=== PATIENT | male | born 1965 | race African-American/Black ===

== ENCOUNTER 2017-07-09 08:46 | Day surgery (SDC) | payer BC ==
[~2017-07-09 08:46] MED LIST: Buffered Lidocaine 0.9% SYRIN* 5 ML/SYR SYRINGE INTRADERM ONE; Dexamethasone IV* 4 MG/ML 1 ML (4 MG) IV SLOW PU ONE; Famotidine IV* 10 MG/ML 2 ML (20 mg) IV ONE
[2017-07-09] MEDS ORDERED: Dexamethasone IV* 4 MG/ML 1 ML (4 MG) ONE (08:52)
[2017-07-09] MEDS ORDERED: Buffered Lidocaine 0.9% SYRIN* 5 ML/SYR SYRINGE ONE (08:53)
[2017-07-09] MEDS ORDERED: Famotidine IV* 10 MG/ML 2 ML (20 mg) ONE (08:53)
[2017-07-09] MEDS ORDERED: Bupivacaine 0.25% SDV* 30 ML ONE (09:34)
[2017-07-09] MEDS ORDERED: Lidocaine 1% INJ* 10 MG/ML 30 ML SDV ONE (09:35)
[2017-07-09] MEDS ORDERED: fentaNYL* 50 MCG/ML 2 ML VIAL (100 MCG VIAL) IV PRN (09:38)
[2017-07-09] MEDS ORDERED: oxyCODONE/Acetamin 5/325 MG* TAB PO PRN (09:38)
[2017-07-09] MEDS ORDERED: DiMENhydriNATE IV* 50 MG/ML VIAL IV PUSH PRN (09:38)
[2017-07-09] MEDS ORDERED: Ondansetron INJ* 2 MG/ML VIAL IV PRN (09:38)
[2017-07-09] MEDS ORDERED: Ondansetron INJ* 2 MG/ML VIAL ONE (09:48)
[2017-07-09] MEDS ORDERED: Ketorolac INJ* 30 MG/ML 1 ML VIAL ONE (09:48)
[2017-07-09] MEDS ORDERED: Midazolam* 1 MG/ML 2 ML VIAL (2 MG) ONE (09:48)
[2017-07-09] MEDS ORDERED: Propofol* 10 MG/ML 20 ML BTL IV PUSH ONE (09:48)
[2017-07-09] MEDS ORDERED: fentaNYL* 50 MCG/ML 2 ML VIAL (100 MCG VIAL) ONE (09:48)
[2017-07-09 12:17] VITALS: BP 145/96
--- NOTE | 2017-07-10 07:38 | OP ---
DATE OF OPERATION: 07/09/17 - [facility] DATE OF : 61 SURGEON: Jorge Marcial MD SPECTACLE TRUER: ROBER Arnold ANESTHESIOLOGIST: Dr. Corral ANESTHESIA: Local MAC. PRE-OP DIAGNOSIS: Left wrist de Quervain's disease. POST-OP DIAGNOSIS: Left wrist de Quervain's disease. OPERATIVE PROCEDURE: Left wrist de Quervain's release. INDICATIONS: Kali has had progressive disease. We talked about treatment options. He wanted to proceed with a de Quervain's release. We talked about risks and benefits. FINDINGS: He did have an accessory compartment. EBL: 2 mL. COMPLICATIONS: None. DESCRIPTION OF PROCEDURE: Kali was seen in the preoperative holding area. The correct side, site, and procedure were identified. We came back to the operating room. The arm was prepped and draped in the usual fashion. A time- out was performed. The arm was exsanguinated with the Esmarch and the tourniquet inflated to 250 mmHg. I made a 2-cm transverse incision just proximal to the radial styloid. Full- thickness flaps were raised off the tendon sheath retracting the radial sensory nerve. The first dorsal compartment was opened along the course of the tendons along its dorsal aspect. The release was completed proximally and distally. There was an accessory compartment. I went ahead and opened the accessory compartment septum with a 15-blade and then the septum was excised in its entirety. Once the area was completely released, I went ahead and irrigated out the wound. Skin was closed with 3-0 Monocryl suture. The operative site had been injected prior to making incision with 0.25% plain Marcaine. The wound was dressed with Steri-Strips, 4x4s, sterile Webril, and an Yo bandage. Tourniquet was deflated and the hand pinked up immediately. He was taken to the recovery room in stable condition. [id number] #: [id number] [facility] HOSPITALRoselia
== END 2017-07-09 12:19 | disposition home or self-care (01) ==
LOC: OR 08:46
PROVIDERS: ATTEND Orthopaedic Surgery Hand Surgery
DX: M65.4 Radial styloid tenosynovitis [de Quervain] (principal)
CPT/HCPCS: J1100; J1885; J2250; J2405; J2704; J3010

== ENCOUNTER 2019-10-16 23:22 | Emergency (ER) | payer BC, OTHER ==
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
[2019-10-17] MEDS ORDERED: Ibuprofen TAB* 600 MG PO ONE (00:55)
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
[2019-10-17 01:07] VITALS: BP 145/82
== END 2019-10-17 01:06 | disposition home or self-care (01) ==
LOC: ED 23:22
DX: M54.2 Cervicalgia (principal); S00.81XA Abrasion of other part of head, initial encounter; R21 Rash and other nonspecific skin eruption; Y09 Assault by unspecified means; Y92.9 Unspecified place or not applicable; Z72.0 Tobacco use
CPT/HCPCS: 99282; A9270-GY